=== PATIENT | male | born 1955 | race Caucasian/White ===

== ENCOUNTER → 2018-05-11 | Outpatient (CLI) | payer OTHER ==
[2018-05-11 16:36] LABS: ALANINE AMINOTRANSFERASE 21 U/L (12-78); ALBUMIN 3.9 g/dL (3.4-5.0); ANION GAP 10 mmol/L (5-15); CALCIUM 8.8 mg/dL (8.5-10.1); CHLORIDE 110 mmol/L (98-107); CREATININE 1.33 mg/dL (0.7-1.3)
[2018-05-11 16:42] LABS: ALKALINE PHOSPHATASE 74 U/L (45-117); BILIRUBIN,TOTAL 0.4 mg/dL (0.2-1.0); CHOL/HDL RATIO 3.7; CHOLESTEROL, TOTAL 153 mg/dL (140-239); HDL CHOL % 27 % (26-37); HDL CHOLESTEROL (DIRECT) 41 mg/dL (40-60); LDL CHOLESTEROL,CALCULATED 84 mg/dL (54-169); TOTAL PROTEIN 6.5 g/dL (6.4-8.2); TRIGLYCERIDES 140 mg/dL (50-200); VLDL CHOLESTEROL 28 mg/dL (0-25)
== END | disposition home or self-care (01) ==
LOC: CFH 06:45
PROVIDERS: ATTEND Family Medicine
DX: Z00.00 Encounter for general adult medical examination without abnormal findings (principal); Z13.220 Encounter for screening for lipoid disorders; Z13.6 Encounter for screening for cardiovascular disorders; Z12.11 Encounter for screening for malignant neoplasm of colon
CPT/HCPCS: 36415; 80053; 80061; 82043; 82570

== ENCOUNTER 2018-09-28 23:57 | Inpatient (IN) | payer OTHER, MEDICARE ==
[~2018-09-28] VITALS: Ht 182.9 cm; Wt 78.6 kg
[2018-09-29] MEDS ORDERED: METF500T17 PO (00:02)
--- NOTE | 2018-09-29 00:15 | NUR ---
PT HERE FOR COUGH, SOB, ABD PAIN AND CHEST PAIN THAT STARTED AFTER WORK. PT FINISHED ABX FOR PNA A COUPLE OF DAYS AGO. PT HAS INCREASED WORK OF BREATHING AND IS TACHYCARDIC. PT PLACED ON 5 L O2 AND IS PLACED ON MONITORS. TECH AT BEDSIDE TO START PIV AND DRAW LABS.
[2018-09-29] MEDS ORDERED: ALBUTEROL/IPRATROPIUM 2.5MG/0.5MG, 3 ML ONE (00:22)
[2018-09-29] MEDS ORDERED: methylPREDNISolone SOD SUCC 125 MG/2 ML ONE (00:25)
[2018-09-29] MEDS ORDERED: ONDANSETRON 2MG/ML, 2ML ONE (00:25)
[2018-09-29] MEDS ORDERED: MORPHINE SULFATE 4 MG/ML, 1ML ONE (00:25)
[2018-09-29] MEDS: ALBUTEROL SULFATE 2.5 MG/3 ML NPPB ONE ×2 (00:29→01:10)
[2018-09-29] MEDS ORDERED: methylPREDNISolone SOD SUCC 125 MG/2 ML IVP ONE (00:30)
[2018-09-29] MEDS ORDERED: SODIUM CHLORIDE FLUSH 10ML SYR IVF ONE (00:30)
[2018-09-29] MEDS ORDERED: MORPHINE SULFATE 4 MG/ML, 1ML IVPush ONE (00:30)
[2018-09-29] MEDS ORDERED: ONDANSETRON 2MG/ML, 2ML IVPush ONE (00:30)
[2018-09-29] MEDS ORDERED: ALBUTEROL/IPRATROPIUM 2.5MG/0.5MG, 3 ML NEB ONE (00:30)
[2018-09-29 00:32] LABS: BASOPHILS # (AUTO) 0.04 x10^3/uL (0-0.1); BASOPHILS % (AUTO) 0 % (0-1); EOSINOPHILS # (AUTO) 0.35 x10^3/uL (0-0.4); EOSINOPHILS % (AUTO) 3 % (1-7); LYMPHOCYTES # (AUTO) 3.61 x10^3/uL (1-3.4); LYMPHOCYTES % (AUTO) 29 % (22-44); MD NO; MEAN CORPUSCULAR HEMOGLOBIN 30.2 pg (27.5-34.5); MEAN CORPUSCULAR HGB CONC 33.8 g/dL (33.2-36.2); MEAN CORPUSCULAR VOLUME 89.1 fL (81-97); MEAN PLATELET VOLUME 10.4 fL (7.4-10.4); MONOCYTES # (AUTO) 0.52 x10^3/uL (0.2-0.8); MONOCYTES % (AUTO) 4 % (2-9); NEUTROPHILS # (AUTO) 8.04 x10^3/uL (1.8-6.8); NEUTROPHILS % (AUTO) 64 % (42-75); PLATELET COUNT 217 x10^3/uL (130-400); RED BLOOD COUNT 5.24 x10^6/uL (4.38-5.82)
--- NOTE | 2018-09-29 00:36 | NUR ---
PT MEDICATED AND SAYS BREATHING HAS SLIGHTLY IMPROVED WITH BREATHING TREATMENT. PT RESTING WITH SON AT BEDSIDE. CALL LIGHT IN REACH
[2018-09-29 00:43] LABS: ALANINE AMINOTRANSFERASE 81 U/L (12-78); ALBUMIN 3.9 g/dL (3.4-5.0); ANION GAP 9 mmol/L (5-15); CALCIUM 8.6 mg/dL (8.5-10.1); CHLORIDE 111 mmol/L (98-107); CREATININE 1.28 mg/dL (0.7-1.3); INTERNATIONAL NORMALIZED RATIO 1.04 (0.93-1.1); PROTHROMBIN TIME 10.9 Seconds (9.6-11.5)
[2018-09-29 00:47] LABS: ALKALINE PHOSPHATASE 88 U/L (45-117); BILIRUBIN,TOTAL 0.6 mg/dL (0.2-1.0); TOTAL PROTEIN 6.7 g/dL (6.4-8.2); TROPONIN I 0.048 ng/mL (0.000-0.045)
[2018-09-29] MEDS ORDERED: ALBUTEROL SULFATE 2.5 MG/3 ML ONE (01:02)
--- NOTE | 2018-09-29 01:19 | NUR ---
PT TO CT
[2018-09-29] MEDS ORDERED: PROMETHAZINE 25 MG/ML, 1ML IM ONE (01:30)
[2018-09-29] MEDS ORDERED: PROMETHAZINE 25 MG/ML, 1ML ONE (01:30)
--- NOTE | 2018-09-29 01:48 | NUR ---
BREAK RN: Dr. Swift at bedside to discuss ED findings and POC.
[2018-09-29] MEDS ORDERED: FUROSEMIDE 40 MG/4 ML ONE (01:51)
[2018-09-29] MEDS ORDERED: NITROGLYCERIN SINGLE TAB 0.4 MG SL ONE ×2 (01:51→02:00)
[2018-09-29] MEDS ORDERED: NITROGLYCERIN OINT 2%, 1GM TP ONE ×2 (01:52→02:00)
[2018-09-29] MEDS ORDERED: ASPIRIN 81 MG TABLET CHEW PO ONE (02:00)
[2018-09-29] MEDS ORDERED: FUROSEMIDE 40 MG/4 ML IV ONE ×2 (02:00→02:30)
--- NOTE | 2018-09-29 02:04 | NUR ---
BREAK RN: Pt medicated per JUL. Automatic blood pressure cuff set to take BP q 5 minutes after admin of NTG. Pt given urinal.
--- NOTE | 2018-09-29 02:05 | NUR ---
Dr. Downing at bedside to evaluate pt for admission.
--- NOTE | 2018-09-29 02:07 | NUR ---
Pt O2 sat noted to be 87% and sustained, especially while conversing with Dr. Downing. O2 via NC increased to 4LPM.
[2018-09-29] MEDS ORDERED: ASPIRIN 81 MG TABLET CHEW ONE (02:20)
[2018-09-29] MEDS ORDERED: POLYETHYLENE GLYCOL 17 GM PACKET PO PRN (02:30)
[2018-09-29] MEDS ORDERED: LABETALOL 5MG/ML, 20ML IVPush PRN (02:30)
[2018-09-29] MEDS ORDERED: ACETAMINOPHEN 325 MG TABLET PO PRN (02:30)
[2018-09-29 02:41] VITALS: BP 164/94
[2018-09-29] MEDS: ENOXAPARIN 40 MG/0.4 ML SQ SCH (03:00)
[2018-09-29 03:20] LABS: HEMOGLOBIN A1C 6.3 % (4.2-6.3)
[2018-09-29] MEDS ORDERED: OMNIPAQUE 350 MG/ML, 100ML BOTTLE ONE (05:00)
[2018-09-29] MEDS: ASPIRIN 325 MG TABLET EC PO SCH (05:18)
[2018-09-29] MEDS: CARVEDILOL 3.125 MG TABLET PO SCH ×2 (05:18→16:03)
[2018-09-29 06:19] LABS: TROPONIN I 0.059 ng/mL (0.000-0.045)
[2018-09-29] MEDS: FUROSEMIDE 40 MG/4 ML IV SCH ×2 (08:23→16:04)
[2018-09-29 08:28] VITALS: BP 112/67
[2018-09-29] MEDS ORDERED: LISINOPRIL 10 MG TABLET PO SCH (09:00)
[2018-09-29] MEDS: INSULIN LISPRO 100 UNITS/ML, PEN SQ-INSULIN SCH ×4 (09:11→21:15)
[2018-09-29 11:41] LABS: TROPONIN I 0.028 ng/mL (0.000-0.045)
[2018-09-29 15:03] VITALS: BP 93/55
[2018-09-29 16:18] LABS: CHOL/HDL RATIO 2.8; LDL/HDL RATIO 1.6 (0.5-3.0)
[2018-09-29 20:02] VITALS: BP 94/49
[2018-09-29] MEDS ORDERED: INSULIN GLARGINE 100 UNITS/ML, PEN SQ-INSULIN SCH (21:00)
[2018-09-29] MEDS ORDERED: ATORVASTATIN 20 MG TABLET PO SCH (21:00)
[2018-09-29] MEDS: ATORVASTATIN 40 MG TABLET PO SCH (21:14)
[2018-09-29 21:23] VITALS: BP 90/56
[2018-09-30] MEDS: ENOXAPARIN 40 MG/0.4 ML SQ SCH ×2 (01:55→22:08)
[2018-09-30 02:32] VITALS: BP 103/60
[2018-09-30 05:17] LABS: BASOPHILS # (AUTO) 0.12 x10^3/uL (0-0.1); BASOPHILS % (AUTO) 1 % (0-1); EOSINOPHILS # (AUTO) 0.02 x10^3/uL (0-0.4); EOSINOPHILS % (AUTO) 0 % (1-7); LYMPHOCYTES # (AUTO) 1.94 x10^3/uL (1-3.4); LYMPHOCYTES % (AUTO) 14 % (22-44); MD NO; MEAN CORPUSCULAR HEMOGLOBIN 30.2 pg (27.5-34.5); MEAN CORPUSCULAR HGB CONC 33.7 g/dL (33.2-36.2); MEAN CORPUSCULAR VOLUME 89.8 fL (81-97); MEAN PLATELET VOLUME 10.4 fL (7.4-10.4); MONOCYTES # (AUTO) 0.78 x10^3/uL (0.2-0.8); MONOCYTES % (AUTO) 6 % (2-9); NEUTROPHILS # (AUTO) 11.11 x10^3/uL (1.8-6.8); NEUTROPHILS % (AUTO) 80 % (42-75); PLATELET COUNT 167 x10^3/uL (130-400); RED BLOOD COUNT 4.46 x10^6/uL (4.38-5.82); RED CELL DISTRIBUTION WIDTH 13.1 % (9.4-14.8)
[2018-09-30 05:28] LABS: CHLORIDE 109 mmol/L (98-107)
[2018-09-30 05:35] LABS: ALANINE AMINOTRANSFERASE 49 U/L (12-78); ALBUMIN 3.3 g/dL (3.4-5.0); ALKALINE PHOSPHATASE 65 U/L (45-117); ANION GAP 7 mmol/L (5-15); BILIRUBIN,TOTAL 0.7 mg/dL (0.2-1.0); CALCIUM 8.3 mg/dL (8.5-10.1); CREATININE 1.53 mg/dL (0.7-1.3); TOTAL PROTEIN 5.6 g/dL (6.4-8.2)
[2018-09-30] MEDS: CARVEDILOL 3.125 MG TABLET PO SCH ×2 (05:38→16:44)
[2018-09-30] MEDS: ASPIRIN 325 MG TABLET EC PO SCH (05:38)
[2018-09-30 08:16] VITALS: BP 130/73
[2018-09-30 08:33] LABS: BILIRUBIN, DIRECT 0.1 mg/dL (0.1-0.2)
[2018-09-30] MEDS: LISINOPRIL 10 MG TABLET PO SCH (08:48)
[2018-09-30] MEDS: POTASSIUM CHLORIDE 20 MEQ TAB.ER.PRT PO SCH ×2 (08:48→12:48)
[2018-09-30] MEDS: INSULIN LISPRO 100 UNITS/ML, PEN SQ-INSULIN SCH ×4 (08:49→22:06)
[2018-09-30 13:51] VITALS: BP 119/66
[2018-09-30 21:30] VITALS: BP 127/76
[2018-09-30] MEDS: ATORVASTATIN 40 MG TABLET PO SCH (22:03)
[2018-09-30] MEDS: INSULIN GLARGINE 100 UNITS/ML, PEN SQ-INSULIN SCH (22:06)
[2018-10-01 02:09] VITALS: BP 133/84
[2018-10-01 05:41] LABS: BASOPHILS # (AUTO) 0.04 x10^3/uL (0-0.1); BASOPHILS % (AUTO) 0 % (0-1); EOSINOPHILS # (AUTO) 0.23 x10^3/uL (0-0.4); EOSINOPHILS % (AUTO) 2 % (1-7); LYMPHOCYTES # (AUTO) 4.15 x10^3/uL (1-3.4); LYMPHOCYTES % (AUTO) 43 % (22-44); MD NO; MEAN CORPUSCULAR HEMOGLOBIN 30.2 pg (27.5-34.5); MEAN CORPUSCULAR HGB CONC 33.6 g/dL (33.2-36.2); MEAN CORPUSCULAR VOLUME 89.7 fL (81-97); MEAN PLATELET VOLUME 10.4 fL (7.4-10.4); MONOCYTES # (AUTO) 0.67 x10^3/uL (0.2-0.8); MONOCYTES % (AUTO) 7 % (2-9); NEUTROPHILS # (AUTO) 4.53 x10^3/uL (1.8-6.8); NEUTROPHILS % (AUTO) 47 % (42-75); PLATELET COUNT 150 x10^3/uL (130-400); RED BLOOD COUNT 4.64 x10^6/uL (4.38-5.82)
[2018-10-01] MEDS: ASPIRIN 325 MG TABLET EC PO SCH (05:41)
[2018-10-01] MEDS: CARVEDILOL 3.125 MG TABLET PO SCH ×2 (05:42→17:54)
[2018-10-01 05:48] LABS: CALCIUM 8.2 mg/dL (8.5-10.1); CHLORIDE 115 mmol/L (98-107)
[2018-10-01 05:52] LABS: ANION GAP 4 mmol/L (5-15); CREATININE 1.08 mg/dL (0.7-1.3)
[2018-10-01] MEDS ORDERED: SODIUM CHLORIDE 0.9% 1,000 ML IV SCH (06:00)
[2018-10-01] MEDS: INSULIN LISPRO 100 UNITS/ML, PEN SQ-INSULIN SCH ×4 (06:59→20:35)
[2018-10-01 08:03] VITALS: BP 144/95
[2018-10-01] MEDS: LISINOPRIL 10 MG TABLET PO SCH (09:00)
[2018-10-01] MEDS ORDERED: MIDAZOLAM 1 MG/ML, 2ML ONE (13:42)
[2018-10-01] MEDS ORDERED: FENTANYL PF 100 MCG/2ML ONE (13:42)
[2018-10-01] MEDS ORDERED: LIDOCAINE-MPF 1%, 5ML ONE (13:42)
[2018-10-01] MEDS ORDERED: HEPARIN 1,000 UNITS/ML, 10ML ONE (13:44)
[2018-10-01] MEDS ORDERED: VERAPAMIL 2.5 MG/ML, 2ML ONE (13:44)
[2018-10-01 19:07] VITALS: BP 124/71
[2018-10-01] MEDS: ATORVASTATIN 40 MG TABLET PO SCH (20:33)
[2018-10-01] MEDS: INSULIN GLARGINE 100 UNITS/ML, PEN SQ-INSULIN SCH (20:35)
[2018-10-02 00:29] VITALS: BP 135/86
[2018-10-02] MEDS: ENOXAPARIN 40 MG/0.4 ML SQ SCH (04:54)
[2018-10-02] MEDS: ASPIRIN 325 MG TABLET EC PO SCH (04:54)
[2018-10-02] MEDS: CARVEDILOL 3.125 MG TABLET PO SCH (04:54)
[2018-10-02 05:20] LABS: BASOPHILS # (AUTO) 0.04 x10^3/uL (0-0.1); BASOPHILS % (AUTO) 0 % (0-1); CHLORIDE 114 mmol/L (98-107); EOSINOPHILS # (AUTO) 0.29 x10^3/uL (0-0.4); EOSINOPHILS % (AUTO) 3 % (1-7); LYMPHOCYTES # (AUTO) 3.67 x10^3/uL (1-3.4); LYMPHOCYTES % (AUTO) 35 % (22-44); MD NO; MEAN CORPUSCULAR HEMOGLOBIN 30.7 pg (27.5-34.5); MEAN CORPUSCULAR HGB CONC 34.5 g/dL (33.2-36.2); MONOCYTES # (AUTO) 0.72 x10^3/uL (0.2-0.8); MONOCYTES % (AUTO) 7 % (2-9); NEUTROPHILS # (AUTO) 5.76 x10^3/uL (1.8-6.8); NEUTROPHILS % (AUTO) 55 % (42-75); PLATELET COUNT 137 x10^3/uL (130-400); RED BLOOD COUNT 4.94 x10^6/uL (4.38-5.82)
[2018-10-02 05:25] LABS: ANION GAP 4 mmol/L (5-15); CALCIUM 8.4 mg/dL (8.5-10.1)
[2018-10-02 07:08] VITALS: BP 148/94
[2018-10-02] MEDS: INSULIN LISPRO 100 UNITS/ML, PEN SQ-INSULIN SCH (07:09)
[2018-10-02] MEDS: LISINOPRIL 10 MG TABLET PO SCH (08:10)
[2018-10-02] MEDS ORDERED: CARV12.543 PO (10:07)
[2018-10-02] MEDS ORDERED: GLIP5TAB10 PO (10:07)
[2018-10-02] MEDS ORDERED: ASPI-650 PO (10:07)
[2018-10-02] MEDS ORDERED: LISI-167 PO (10:07)
[2018-10-02] MEDS ORDERED: ATOR40TA78 PO (10:07)
[2018-10-02] MEDS ORDERED: FURO20TA3 PO (10:09)
[2018-10-02] MEDS ORDERED: CARVEDILOL 12.5 MG TABLET PO SCH (18:00)
[2018-10-02] MEDS ORDERED: CARVEDILOL 6.25 MG TABLET PO SCH (18:00)
== END 2018-10-02 12:44 | disposition home or self-care (01) | DRG 280 ==
LOC: ED 09-29 00:50 → EDIP 09-29 01:55 → 5SO 09-29 02:49 → DCLOUNGE 10-02 12:25
PROVIDERS: ADMIT Family Medicine; ATTEND Family Medicine
PROC: 4A023N7 Measurement of Cardiac Sampling and Pressure, Left Heart, Percutaneous Approach (ICD-10-PCS; principal; 2018-10-01)
PROC: B2111ZZ Fluoroscopy of Multiple Coronary Arteries using Low Osmolar Contrast (ICD-10-PCS; 2018-10-01)
PROC: B2151ZZ Fluoroscopy of Left Heart using Low Osmolar Contrast (ICD-10-PCS; 2018-10-01)
DX: I21.A1 Myocardial infarction type 2 (principal); I50.21 Acute systolic (congestive) heart failure; J96.01 Acute respiratory failure with hypoxia; I42.9 Cardiomyopathy, unspecified; I11.0 Hypertensive heart disease with heart failure; E11.9 Type 2 diabetes mellitus without complications; E87.6 Hypokalemia; I16.0 Hypertensive urgency; I25.10 Atherosclerotic heart disease of native coronary artery without angina pectoris; I37.1 Nonrheumatic pulmonary valve insufficiency; J98.01 Acute bronchospasm; K75.9 Inflammatory liver disease, unspecified; Z79.84 Long term (current) use of oral hypoglycemic drugs; Z79.899 Other long term (current) drug therapy; Z87.01 Personal history of pneumonia (recurrent); Z87.891 Personal history of nicotine dependence; Z90.49 Acquired absence of other specified parts of digestive tract; Z79.82 Long term (current) use of aspirin
CPT/HCPCS: 36415; 93458; J7613; J7620; 71045; 71275; 80048; 80053; 80061; 80074; 82248; 82962; 83036; 83605; 83690; 83735; 83880; 84484; 85025; 85379; 85610; 85730; 93005; 93306; 94640; 99156; C1769; C1894; G0378; J1644; J1650; J1940; J2250; J2405; J2550; J3010; Q9967; J1815; J2930; J7030

== ENCOUNTER 2019-01-02 07:35 | Outpatient (CLI) | payer OTHER | END 2019-01-02 23:59 | disposition home or self-care (01) | LOC: CFH 07:35 | PROVIDERS: ATTEND Registered Nurse | DX: I35.1 Nonrheumatic aortic (valve) insufficiency (principal); I10 Essential (primary) hypertension; E78.5 Hyperlipidemia, unspecified; I42.9 Cardiomyopathy, unspecified | CPT/HCPCS: 93306 ==